=== PATIENT | female | born 1955 | race Caucasian/White ===

== ENCOUNTER 2022-05-15 19:16 | Emergency (ER) | payer MEDICAID ==
[~2022-05-15] VITALS: Ht 154.9 cm; Wt 77.1 kg
--- NOTE | 2022-05-15 19:40 | NUR ---
MICHELL 6 FROM HOME FOR WEAKNESS, DIZZINESS, N/V AND PALPITATION X 2 DAYS.
[2022-05-15] MEDS ORDERED: ONDANSETRON HCL/PF 4 MG/2 ML VIAL IVP ONE ×2 (20:30→22:00)
[2022-05-15] MEDS ORDERED: IV NS 0.9% 500 ML BAG IV ONE (20:30)
[2022-05-15] MEDS ORDERED: ONDANSETRON HCL/PF 4 MG/2 ML VIAL ONE ×2 (20:31→21:48)
--- NOTE | 2022-05-15 20:40 | NUR ---
BLOOD DRAWN AND SENT TO LAB
[2022-05-15 20:44] LABS: BASOPHILS % (AUTO) 0.3 % (0.0-2.0); EOSINOPHILS % (AUTO) 0.3 % (0.0-6.0); HEMATOCRIT 38 % (33-45); HEMOGLOBIN 12.5 g/dL (11.5-14.8); LYMPHOCYTES # (AUTO) 1.6 K/uL (0.8-4.8); LYMPHOCYTES % (AUTO) 34.7 % (20.0-44.0); MEAN CORPUSCULAR HGB CONC 33 g/dl (31.0-36.0); MEAN CORPUSCULAR VOLUME 88 fL (82-100); MONOCYTES # (AUTO) 0.3 K/uL (0.1-1.30); MONOCYTES % (AUTO) 5.5 % (2.0-12.0); NEUTROPHILS # (AUTO) 2.8 K/uL (1.8-8.9); NEUTROPHILS % (AUTO) 59.2 % (43.0-81.0); PLATELET COUNT (AUTO) 266 K/uL (150-450); RED BLOOD CELL COUNT(AUTO) 4.35 MIL/uL (4.0-5.2); WHITE BLOOD COUNT (AUTO) 4.7 K/uL (4.3-11.0)
--- NOTE | 2022-05-15 20:53 | NUR ---
PATIENT TAKEN TO CT VIA [facility]
[2022-05-15 21:19] LABS: ALBUMIN 3.6 g/dL (3.4-5.0); BILIRUBIN,DIRECT 0.1 mg/dL (0.0-0.2); BILIRUBIN,TOTAL 0.4 mg/dL (0.2-1.0); CALCIUM, SERUM 9.3 mg/dL (8.5-10.1); CREATININE 0.6 mg/dL (0.6-1.3); POTASSIUM 3.2 mmol/L (3.5-5.1); TOTAL PROTEIN, SERUM 7.3 g/dL (6.4-8.2)
--- NOTE | 2022-05-15 21:45 | NUR ---
URINE SAMPLE SENT TO LAB
[2022-05-15] MEDS ORDERED: DIAZEPAM 5 MG TABLET PO ONE (22:00)
[2022-05-15] MEDS ORDERED: DIAZEPAM 5 MG TABLET ONE (22:02)
--- NOTE | 2022-05-15 22:25 | NUR ---
PATIENT TAKEN TO CT VIA [facility]
[2022-05-15] MEDS ORDERED: KETOROLAC TROMETHAMINE INJ 30 MG/ML VIAL IV ONE (22:30)
[2022-05-15 22:32] LABS: BILIRUBIN,URINE NEGATIVE (NEGATIVE); COLOR,URINE YELLOW (YELLOW); LEUKOCYTE ESTERASE ,URINE NEGATIVE (NEGATIVE); NITRITE, URINE NEGATIVE (NEGATIVE); PH,URINE 8.5 (5.0-8.0); PROTEIN,URINE NEGATIVE (NEGATIVE); UGLUCOSE NEGATIVE (NEGATIVE); UROBILINOGEN,URINE 0.2 EU/dL (0.2)
[2022-05-15] MEDS ORDERED: KETOROLAC TROMETHAMINE INJ 30 MG/ML VIAL ONE (22:33)
[2022-05-15 22:49] LABS: BACTERIA,URINE None seen /HPF (None Seen); HYALINE CASTS, URINE Rare /LPF (None Seen); SQUAMOUS EPITHELIAL CELL,UR 0-2 /HPF (None Seen)
[2022-05-15] MEDS ORDERED: MECL-159 PO (22:53)
[2022-05-15] MEDS ORDERED: AMOX-430 PO (22:53)
[2022-05-15] MEDS ORDERED: ONDA4TAB5 PO (22:53)
--- NOTE | 2022-05-15 23:21 | NUR ---
IV removed. Catheter intact and site benign. Pressure and 4x4 applied to site. No bleeding noted.Patient discharged to home in stable condition. Written and verbal after care instructions given. DAUGHTER AND SON verbalizes understanding of instruction.
[2022-05-15 23:22] VITALS: BP 145/89
== END 2022-05-15 23:38 | disposition home or self-care (01) ==
LOC: ER 19:22
DX: K52.9 Noninfective gastroenteritis and colitis, unspecified (principal); R42 Dizziness and giddiness; I10 Essential (primary) hypertension
CPT/HCPCS: 99285; 70450; 96374; 71045; 96375; 93005; 96376; 74176; 85025; 80048; 83690; 80076; 81001; 36415; 82962; J1885; J2405 ×2